=== PATIENT | female | born 1995 | race Caucasian/White ===

== ENCOUNTER 2022-12-31 19:12 | Emergency (ER) | payer OTHER, SELFPAY ==
[2022-12-31 19:28] VITALS: BP 135/85; PULSE 84; RESP 18; TEMP 36.3; O2SAT 100
--- NOTE | 2022-12-31 19:43 | ED.ABDPAIN ---
HPI - Abdominal Pain General Chief Complaint: Urogenital-Female Stated Complaint: Abdominal Pain/Back Pain Time Seen by Provider: 12/31/22 19:30 Source: patient, RN notes reviewed and old records reviewed Mode of arrival: ambulatory Limitations: no limitations History of Present Illness HPI narrative: 27 year old female who presents to [facility] care with complaints of cramping across her lower abdomen which radiates to her back on the right side for the past 3 days. Patient reports that she just finished her menses which was a week late.Patient reports that she has had some bilateral flank pain with pain greater on the right side. Patient thought she might have URI and wanted to get urine checked, denies any burning with urination, no urgency or frequency or any blood noted in urine. Patient reports no nausea or vomiting has had some diarrhea. Patient denies any known fevers chills or sweats or any body aches. Patient denies any present vaginal bleeding or any vaginal discharge or any concern for STD exposure. MD elicited complaint: abdominal pain Pertinent past history: other (gastroenteritis) Onset (ago): day(s) (2) Pain scale (0-10): 7 Treatments prior to arrival: other (Tylenol) Related Data Allergies Allergy/AdvReac Type Severity Reaction Status Date / Time ibuprofen Allergy Unknown hives Verified 12/31/22 19:29 Review of Systems Review of Systems: CONSTITUTIONAL: Denies fever, chills, or sweats. ENT: Denies rhinorrhea, congestion, sore throat, or otalgia. CARDIOVASCULAR: Denies chest pain, palpitations, or edema. RESPIRATORY: Denies cough or dyspnea. GASTROINTESTINAL: Reports abdominal cramping sensation across lower abdomen to right flank,no nausea, vomiting, reports some diarrhea. GENITOURINARY: Denies dysuria or hematuria. reports bilateral flank pain SKIN: Denies rash or itching. MUSCULOSKELETAL: bilateral flank worse on right, no joint pain, or myalgia. NEUROLOGIC: Denies headache, numbness, or weakness. All systems reviewed & are unremarkable except as noted in HPI and below PMFSH Past Medical History Medical History (Updated 01/02/23 @ 16:14 by Nirali Stratton NP) Gastroenteritis Social History Social History (Updated 01/02/23 @ 16:16 by Nirali Stratton NP) Smoking status: Smoker, status unknown Alcohol intake: unknown Substance use: unknown Gender identity (if verbalized by the patient): Female Comments At time of signature, agree with nursing past medical, surgical, social and family history. There is no relevant family history pertinent to the presenting complaint Exam Narrative: GENERAL: Well-appearing, well-nourished, and in no acute distress. HEAD: Normocephalic, atraumatic. EYES: PERRLA, conjunctivae clear, and EOMI. ENT: Nares clear. Mucous membranes moist. Oropharynx without edema, erythema, or lesions. Tonsils not enlarged and without exudate. NECK: Supple. No lymphadenopathy CHEST: Speaks in full sentences. No respiratory distress.SAO2 100% on room air HEART: Regular rate and rhythm. ABDOMEN: Soft, flat, nondistended. No guarding, rebound tenderness, or rigid. No pulsatilla masses. Bowel sounds present in all four quadrants. No organomegaly. Negative Chester?s sign. No periumbilical tenderness. No Supra public tenderness or distension. Good femoral pulses bilaterally. No hernia noted. No scars or surface trauma. Reports abdominal cramping and flank pain bilateral worse to right. No McBurney point tenderness on exam SKIN: Warm, dry, no rash. NEURO:? Alert and oriented x3. PSYCH: Normal mood and affect Course Course Emergency Course: Patient is aware of diagnosis, understands and agrees to treatment plan.? Anticipatory guidance given.? Patient agrees to follow-up as directed and is aware of reasons to seek care at the emergency department. Portions of this record may have been created with voice recognition software Level of Care: Express Care Visit Vital Sign
== END 2022-12-31 19:58 | disposition home or self-care (01) ==
PROVIDERS: Emergency Provider Registered Nurse
DX: R10.30 Lower abdominal pain, unspecified (principal); R10.9 Unspecified abdominal pain
CPT/HCPCS: 81003; 81025; 99203; G0463

== ENCOUNTER 2023-04-14 10:12 | Emergency (ER) | payer OTHER, SELFPAY ==
[2023-04-14 10:16] VITALS: BP 136/84; PULSE 85; RESP 16; TEMP 36.4; O2SAT 99
--- NOTE | 2023-04-14 10:37 | ED.URI ---
HPI - URI/Sore Throat General Chief Complaint: Upper Respiratory Infection Stated Complaint: Sore Throat/Cough Time Seen by Provider: 04/14/23 10:37 Source: patient Mode of arrival: ambulatory Limitations: no limitations History of Present Illness HPI Narrative: 27 yo F presents with c/o nasal congestion, cough, fatigue, sore throat for 2 days. Afebrile. No CP or SOB. Not taking any OTC meds to treat symptoms. requesting strep and covid test due to recent vaccation. All systems reviewed and negative except as noted above. Related Data Home Medications Medication Instructions Recorded Confirmed No Home Medications 04/14/23 04/14/23 Allergies Allergy/AdvReac Type Severity Reaction Status Date / Time ibuprofen Allergy Unknown hives Verified 04/14/23 10:25 Review of Systems Review of Systems: CONSTITUTIONAL: Denies fever, chills, or sweats. Reports fatigue. EYES: Denies visual changes, redness, or discharge. ENT: Reports rhinorrhea, congestion, sore throat. Denies otalgia. CARDIOVASCULAR: Denies chest pain, palpitations, or edema. RESPIRATORY: Reports cough. Denies dyspnea. GASTROINTESTINAL: Denies abdominal pain, nausea, vomiting, or diarrhea. GENITOURINARY: Denies dysuria or hematuria. SKIN: Denies rash or itching. MUSCULOSKELETAL: Denies back pain, joint pain, or myalgia. NEUROLOGIC: Denies headache, numbness, or weakness. PSYCHIATRIC: Denies anxiety or depression. All other systems reviewed are negative, except as documented in HPI. PMFSH Past Medical History Medical History (Updated 04/14/23 @ 10:53 by Ying Carr NP) Gastroenteritis Social History Social History (Updated 01/02/23 @ 16:16 by Nirali Stratton NP) Smoking status: Smoker, status unknown Alcohol intake: unknown Substance use: unknown Gender identity (if verbalized by the patient): Female Comments At time of signature, agree with nursing past medical, surgical, social and family history. There is no relevant family history pertinent to the presenting complaint. Exam Narrative: GENERAL: This is a well-nourished, well-developed patient, in no apparent distress. HEAD: normocephalic, atraumatic. EYES: PERRL. Sclera clear/white. Vision is grossly intact. EARS: External ears normal, auditory canals clear and without drainage, TMs normal without perforation. Hearing grossly intact. NOSE: External nose normal with moderate congestion, mild erythema to nares without swelling. THROAT: Mucous membranes moist, mild erythema without swelling or exudates. NECK: Neck supple, non-tender without lymphadenopathy, masses or thyromegaly. CARDIOVASCULAR: Regular rate and rhythm without murmurs, gallops, or rubs. RESPIRATORY: Clear to auscultation. Breath sounds equal bilaterally. No wheezes, rales, or rhonchi. SKIN: warm, Dry, intact with no suspicious lesions or rash, good texture and turgor. NEURO: awake, alert, and oriented to person, place and time. There were no obvious focal neurologic abnormalities. EXTREMITIES: No joint tenderness, effusion, or edema noted. Course Course Level of Care: Express Care Visit Vital Signs Vital signs: Vital Signs Temperature 36.4 C 04/14/23 10:16 Pulse Rate 85 04/14/23 10:16 Respiratory Rate 16 04/14/23 10:16 Blood Pressure 136/84 04/14/23 10:16 Pulse Oximetry 99 04/14/23 10:16 Oxygen Delivery Room Air 04/14/23 10:16 Temperature 36.4 C 04/14/23 10:16 Pulse Rate 85 04/14/23 10:16 Respiratory Rate 16 04/14/23 10:16 Blood Pressure 136/84 04/14/23 10:16 Pulse Oximetry 99 04/14/23 10:16 Oxygen Delivery Room Air 04/14/23 10:19 Reviewed MDM - URI/Sore Throat MDM Narrative Medical decision making narrative: Patient is aware of diagnosis, understands and agrees to treatment plan. Anticipatory guidance given. Patient agrees to follow-up as directed and is aware of reasons to seek care at the emergency department. Portions of this recor
== END 2023-04-14 10:58 | disposition home or self-care (01) ==
PROVIDERS: Emergency Provider Nurse Practitioner Family
DX: J06.9 Acute upper respiratory infection, unspecified (principal); Z20.822 Contact with and (suspected) exposure to COVID-19
CPT/HCPCS: 87081; 87426; 87880; 99213; C9803; G0463